=== PATIENT | male | born 1945 | race Caucasian/White ===

== ENCOUNTER 2016-10-04 10:30 | Outpatient (RCR) | payer OTHER ==
[~2016-10-04 10:30] MED LIST: AMLODIPINE BESYL5 MG ORAL; ASPIR 8181 MG ORAL; ATORVASTATIN CA20 MG ORAL; FISH OIL 1,0001 EAC1 ORAL; LOSARTAN POTASS50 MG ORAL; MULTIVITAMINS1 EAC2 ORAL; PROBIOTIC1 EAC6 PO
== END 2016-10-08 | disposition home or self-care (01) ==
LOC: PTY 10:30
DX: M51.36 Other intervertebral disc degeneration, lumbar region (principal); M46.96 Unspecified inflammatory spondylopathy, lumbar region; Z88.0 Allergy status to penicillin
CPT/HCPCS: 97110; 97162; G0283

== ENCOUNTER 2016-10-11 10:41 | Outpatient (RCR) | payer OTHER | END 2016-11-07 | disposition home or self-care (01) | LOC: PTY 10:41 | DX: M51.36 Other intervertebral disc degeneration, lumbar region (principal); M46.96 Unspecified inflammatory spondylopathy, lumbar region | CPT/HCPCS: 97110; 97140; G0283 ==

== ENCOUNTER 2016-11-09 10:15 | Outpatient (RCR) | payer OTHER | END 2016-12-08 | disposition home or self-care (01) | LOC: PTY 10:15 | DX: M51.36 Other intervertebral disc degeneration, lumbar region (principal); M46.96 Unspecified inflammatory spondylopathy, lumbar region | CPT/HCPCS: 97110; 97140; G0283 ==

== ENCOUNTER 2016-12-13 10:08 | Outpatient (RCR) | payer OTHER | END 2017-01-07 | disposition home or self-care (01) | LOC: PTY 10:08 | DX: M51.36 Other intervertebral disc degeneration, lumbar region (principal); M46.96 Unspecified inflammatory spondylopathy, lumbar region | CPT/HCPCS: 97110; 97140; G0283 ==